=== PATIENT | male | born 1980 | race Caucasian/White ===

== ENCOUNTER 2017-06-06 16:29 | Emergency (ER) | payer SELFPAY ==
[~2017-06-06] VITALS: Ht 167.6 cm; Wt 81.6 kg
[2017-06-06] MEDS ORDERED: BUPIVACAINE PF 0.5% 30 ML VIAL TP ONE (16:45)
[2017-06-06] MEDS ORDERED: TDAP DIPH,PERTUSS,TET VAC/PF 0.5 ML DISP.SYRIN IM ONE ×2 (16:45→17:11)
[2017-06-06] MEDS ORDERED: LIDOCAINE 1%-EPI 1:100,000 20 ML VIAL TP ONE (16:45)
[2017-06-06] MEDS ORDERED: FENTANYL CITRATE 100 MCG/2 ML AMPUL IV ONE (16:45)
[2017-06-06] MEDS ORDERED: NEOMY/BACITRA/POLYMYXIN B OINT UD PACKET TP ONE (18:25)
--- NOTE | 2017-06-06 18:29 | NUR ---
Patient discharged to home in stable conditon. Written and verbal after care instructions given. Patient verbalizes understanding of instructions. Pt was given verbal ACI in [place] by . Stressed follow up in 2 days for wound check or return to ER earlier for worsening s/s.
== END 2017-06-06 18:30 | disposition home or self-care (01) ==
LOC: ER 16:30
DX: S71.112A Laceration without foreign body, left thigh, initial encounter (principal); X58.XXXA Exposure to other specified factors, initial encounter; Y93.89 Activity, other specified; Y92.89 Other specified places as the place of occurrence of the external cause; Y99.8 Other external cause status
CPT/HCPCS: 90715; A4217; A4663; J3490

== ENCOUNTER 2017-06-08 11:50 | Emergency (ER) | payer SELFPAY ==
[~2017-06-08] VITALS: Ht 172.7 cm; Wt 83.9 kg
[2017-06-08] MEDS ORDERED: HYDR-3326 PO (11:57)
--- NOTE | 2017-06-08 12:10 | NUR ---
Patient discharged to home in stable conditon. Written and verbal after care instructions given. Patient verbalizes understanding of instructions. ACI given by Nestor RN in [place]. Stressed follow up.
[2017-06-08] MEDS ORDERED: NEOMY/BACITRA/POLYMYXIN B OINT UD PACKET TP ONE ×2 (12:15→12:16)
== END 2017-06-08 12:13 | disposition home or self-care (01) ==
LOC: ER 11:50
DX: S81.812D Laceration without foreign body, left lower leg, subsequent encounter (principal); X58.XXXD Exposure to other specified factors, subsequent encounter
CPT/HCPCS: 99283; A4217; A4663

== ENCOUNTER 2017-06-11 13:01 | Emergency (ER) | payer MEDICAID ==
[~2017-06-11] VITALS: Ht 172.7 cm; Wt 83.9 kg
[~2017-06-11 13:01] MED LIST: HYDR-3326 PO
--- NOTE | 2017-06-11 13:35 | NUR ---
Dr Kasper at the bedside for eval and exam.
--- NOTE | 2017-06-11 13:43 | NUR ---
Clean and dressed suture site per MD silver.
[2017-06-11 14:15] VITALS: BP 127/82
--- NOTE | 2017-06-11 14:15 | NUR ---
Patient discharged to home in stable conditon. Written and verbal after care instructions given. Patient verbalizes understanding of instructions.
== END 2017-06-11 14:16 | disposition home or self-care (01) ==
LOC: ER 13:01
DX: M23.92 Unspecified internal derangement of left knee (principal); Z79.899 Other long term (current) drug therapy
CPT/HCPCS: 99283; A4663

== ENCOUNTER 2017-06-20 18:28 | Emergency (ER) | payer MEDICAID ==
[~2017-06-20] VITALS: Ht 170.2 cm; Wt 81.2 kg
--- NOTE | 2017-06-20 19:09 | NUR ---
pt is in room #2a. dr Kasper evaluated the pt. report was given to assembler 1st shift rn,
[2017-06-20 19:12] VITALS: BP 129/71
== END 2017-06-20 19:13 | disposition home or self-care (01) ==
LOC: ER 18:29
DX: S71.112D Laceration without foreign body, left thigh, subsequent encounter (principal); X58.XXXD Exposure to other specified factors, subsequent encounter; Y92.9 Unspecified place or not applicable; Y99.9 Unspecified external cause status
CPT/HCPCS: A4663